=== PATIENT | male | born 1960 | race Caucasian/White ===

== ENCOUNTER → 2016-11-27 | Outpatient (CLI) | payer MEDICARE | LOC: RAD 11:15 | PROVIDERS: ATTEND Physician Assistant | DX: L03.116 Cellulitis of left lower limb (principal) | CPT/HCPCS: 82565; 73720; A9576 ==

== ENCOUNTER 2016-12-05 12:31 | Inpatient (IN) | payer MEDICARE ==
--- NOTE | 2016-12-05 12:46 | ER Document Report ---
ED Medical Screen (RME) - General Stated Complaint: LEFT FOOT PAIN, SWELLING,DRAINAGE Notes: 56 yo male c/o left foot swelling, redness x several weeks. All toes amputated secondary to trauma and infection. Not diabetic. + hx/o cellulits and MRSA. Seen by emergency technician, Dr Kaur yesterday. Had recent MRI of foot, no osteomylitis. symptoms not improving with oral antibiotics. Recommended to come to ER by Dr Kaur for further evaluation. No fever. Pain 2/5 TRAVEL OUTSIDE OF THE [place] IN LAST 30 DAYS: No
[2016-12-05 14:40] LABS: ABSOLUTE BASOPHILS # (AUTO) 0.1 10^3/uL (0.0-0.2); ABSOLUTE EOSINOPHILS # (AUTO) 0.3 10^3/uL (0.0-0.6); ABSOLUTE LYMPHOCYTES (AUTO) 1.3 10^3/uL (0.5-4.7); ABSOLUTE MONOCYTES (AUTO) 1.2 10^3/uL (0.1-1.4); ABSOLUTE NEUT (AUTO) 10.6 10^3/uL (1.7-8.2); BASOPHILS % (AUTO) 0.6 % (0-2); EOSINOPHILS % (AUTO) 2.6 % (0-6); HEMATOCRIT 36.9 % (37.9-51.0); HEMOGLOBIN 11.7 g/dL (13.5-17.0); HGB HCT DIFFERENCE -1.8; LYMPHOCYTES % (AUTO) 9.3 % (13-45); MEAN CORPUSCULAR HEMOGLOBIN 28.9 pg (27.0-33.4); MEAN CORPUSCULAR HGB CONC 31.6 g/dL (32.0-36.0); MEAN CORPUSCULAR VOLUME 92 fl (80-97); MONOCYTES % (AUTO) 8.8 % (3-13); RED BLOOD COUNT 4.04 10^6/uL (4.35-5.55); RED CELL DISTRIBUTION WIDTH 14.6 % (11.5-14.0); SEGMENTED NEUTROPHILS % (AUTO) 78.7 % (42-78); WHITE BLOOD COUNT 13.5 10^3/uL (4.0-10.5)
[2016-12-05 14:56] LABS: ALANINE AMINOTRANSFERASE 55 U/L (21-72); ALBUMIN 3.9 g/dL (3.5-5.0); ALKALINE PHOSPHATASE 89 U/L (38-126); ANION GAP 14 (5-19); ASPARTATE AMINO TRANSFERASE 38 U/L (17-59); BILIRUBIN,TOTAL 0.2 mg/dL (0.2-1.3); BLOOD UREA NITROGEN 15 mg/dL (7-20); CARBON DIOXIDE 27 mmol/L (22-30); CHLORIDE 92 mmol/L (98-107); CREATININE RESULT 0.85 mg/dL (0.52-1.25); GLUCOSE 91 mg/dL (75-110); POTASSIUM 4.8 mmol/L (3.6-5.0); TOTAL PROTEIN 7.2 g/dL (6.3-8.2)
[2016-12-05] MEDS ORDERED: VANCOMYCIN HCL INJ 1000 MG VIAL IV ONE (15:00)
--- NOTE | 2016-12-05 15:00 | ER Document Report ---
ED General - General Chief Complaint: Foot Pain Stated Complaint: LEFT FOOT PAIN, SWELLING,DRAINAGE Time seen by provider: 14:58 Mode of Arrival: Ambulatory Information source: Patient Notes: This is a 56-year-old man with a history of hypertension, dyslipidemia, stomach ulcers, peripheral vascular disease with vascular neuropathy status post left metatarsal amputations. The patient is new to the area and had an MRI 2 weeks ago by Niki Rodriguez and Shauna Carroll. The patient reports that the MRI did not show osteopenia. He was seen by Dr. Kaur yesterday and referred to the emergency room. Patient has been experiencing increased discharge, changes in color that left foot stump. Medicines: Amitriptyline 50 mg daily Gabapentin 800 mg 4 times daily Lisinopril 20 mg daily Amlodipine 10 mg daily Simvastatin 80 mg daily Pantoprazole 40 mg daily Metoprolol 100 mg daily Aspirin Ventolin when necessary Plavix 75 mg daily Aren't and multivitamin Allergies: Lexiscan TRAVEL OUTSIDE OF THE [place] IN LAST 30 DAYS: No - HPI Onset: Last week Onset/Duration: Gradual Quality of pain: No pain Severity: None Pain Level: Denies Associated symptoms: Chills, Fever Exacerbated by: Denies Relieved by: Denies Similar symptoms previously: Yes Recently seen / treated by doctor: Yes - Related Data Allergies/Adverse Reactions: regadenoson [From [employer]] Allergy (Verified 12/05/16 12:47) Home Medications: Current Home Medications Albuterol Sulfate [Ventolin HFA MDI 18 GM] 2 puff IH Q4HP PRN 12/05/16 [History] Amitriptyline HCl [Elavil 50 mg Tablet] 50 mg PO DAILY 12/05/16 [History] Amlodipine Besylate [Norvasc 10 mg Tablet] 10 mg PO DAILY 12/05/16 [History] Aspirin [Aspirin EC] 81 mg PO DAILY 12/05/16 [History] Clopidogrel Bisulfate [Plavix 75 mg Tablet] 75 mg PO QHS 12/05/16 [History] Gabapentin [Neurontin 400 mg Capsule] 800 mg PO QID 12/05/16 [History] Lisinopril [Prinivil] 20 mg PO DAILY 12/05/16 [History] Metoprolol Succinate [Toprol XL 100 mg Tablet] 100 mg PO DAILY 12/05/16 [History ] Multivitamin [Daily Multiple Vitamin] 1 tab PO DAILY 12/05/16 [History] Pantoprazole Sodium [Protonix] 40 mg PO DAILY 12/05/16 [History] Simvastatin [Zocor 80 mg Tablet] 80 mg PO QHS 12/05/16 [History] Past Medical History - General Information source: Patient - Social History Smoking Status: Current Every Day Smoker Cigarette use (# per day): Yes - half-pack per day Chew tobacco use (# tins/day): No Frequency of alcohol use: None Drug Abuse: None Lives with: Alone Family History: Reviewed & Not Pertinent Patient has suicidal ideation: No Patient has homicidal ideation: No - Past Medical History Cardiac Medical History: Reports: None Pulmonary Medical History: Reports: None Neurological Medical History: Reports: Other - Peripheral neuropathy Endocrine Medical History: Reports: None Renal/ Medical History: Denies: Hx Peritoneal Dialysis Malignancy Medical History: Reports None GI Medical History: Reports: None Musculoskeltal Medical History: Reports None Skin Medical History: Reports None Psychiatric Medical History: Reports: None Traumatic Medical History: Reports: None Infectious Medical History: Reports: None Past Surgical History: Reports: Other - Transmetatarsal amputation left foot - Immunizations Hx Diphtheria, Pertussis, Tetanus Vaccination: Yes Review of Systems - Review of Systems Constitutional: Chills, Fever EENT: No symptoms reported Cardiovascular: No symptoms reported Respiratory: No symptoms reported Gastrointestinal: No symptoms reported Genitourinary: No symptoms reported Male Genitourinary: No symptoms reported Musculoskeletal: See HPI Skin: No symptoms reported Hematologic/Lymphatic: No symptoms reported Neurological/Psychological: No symptoms reported Physical Exam - Vital signs Vitals: Temp Pulse Resp BP Pulse Ox 97.5 F 103 H 20 182/101 H 97 12/05/16 12:39 12/05/16 12:39 12/05/16 12:39 12/05/16 12:39 12/05/16 12:39 Notes: Physical exam: GENERAL: 56-year-old man, alert and oriented 3, no acute distress HEAD: Atraumatic, normocephalic. EYES: Pupils equal round and reactive to light, extraocular movements intact, sclera anicteric, conjunctiva are normal. ENT: TMs normal, nares patent, oropharynx clear without exudates. Moist mucous membranes. NECK: Normal range of motion, supple without lymphadenopathy or JVD. LUNGS: Breath sounds clear to auscultation bilaterally and equal. No wheezes rales or rhonchi. HEART: Regular rate and rhythm without murmurs, rubs or gallops. ABDOMEN: Soft, nontender, normoactive bowel sounds. No guarding, no rebound. No masses appreciated. EXTREMITIES: Left foot status post old metatarsals fracture. The stump does have some erythema as well as pallor and ecchymoses. There is is an opening on the plantar surface of the foot with discharge. There is no anaerobic smell at this time. NEUROLOGICAL: Cranial nerves II through XII grossly intact. Normal speech, normal gait. PSYCH: Normal mood, normal affect. SKIN: Warm, Dry, normal turgor, no rashes or lesions noted. Course - Re-evaluation Re-evalutation: 12/05/16 15:33 Note: The patient had an MRI 2 weeks ago which showed cellulitis without obvious osteomyelitis. Despite outpatient antibiotics, the wound has gotten worse. Clinically, this does look like a potentially limb threatening infection. The patient is started on broad-spectrum antibiotics and will be admitted to the hospital. - Vital Signs Vital signs: Temp Pulse Resp BP Pulse Ox 97.5 F 77 18 126/60 H 95 12/06/16 00:21 12/06/16 00:21 12/06/16 00:21 12/06/16 00:21 12/06/16 00:21 - Laboratory Result Diagrams: 12/05/16 13:45 12/05/16 13:45 Laboratory results interpreted by me: 12/05/16 12/05/16 13:45 13:45 WBC 13.5 H RBC 4.04 L Hgb 11.7 L Hct 36.9 L MCHC 31.6 L RDW 14.6 H Plt Count 484 H Seg Neutrophils % 78.7 H Lymphocytes % 9.3 L Absolute Neutrophils 10.6 H Sodium 133.0 L Chloride 92 L - Diagnostic Test Radiology reviewed: Image reviewed, Reports reviewed - Diffuse soft tissue swelling with gas in the tissues. Critical Care Note - Critical Care Note Total time excluding time spent on procedures (mins): 60 Discharge - Discharge Clinical Impression: cellulitis of the left foot Condition: Serious Disposition: ADMITTED INPATIENT Admitting Provider: Hospitalist - Dr. Correa stated Unit Admitted: Medical Floor
[2016-12-05] MEDS ORDERED: ONDANSETRON HCL INJ/PF 4 MG/2 ML SDV IV PRN ×2 (15:01→16:18)
[2016-12-05] MEDS ORDERED: PIPERACILLIN/TAZOBACTAM 3.375 GM VIAL IV ONE (15:01)
[2016-12-05] MEDS ORDERED: MORPHINE SULFATE 10 MG/ML INJ IV PRN ×2 (15:01→16:31)
[2016-12-05] MEDS ORDERED: ACETAMINOPHEN 325 MG TABLET PO PRN (16:18)
[2016-12-05] MEDS ORDERED: ALBUTEROL SULFATE 0.083% NEB 2.5 MG/3 ML AMPUL NEB PRN (16:18)
[2016-12-05] MEDS ORDERED: VANCOMYCIN HCL INJ 1000 MG VIAL ONE (16:20)
[2016-12-05] MEDS ORDERED: ALBUTEROL SULFATE HFA (90 MCG/PUFF) 8 GM MDI (1 MDI/ER DISP) IH PRN (16:24)
[2016-12-05] MEDS ORDERED: VANCOMYCIN HCL 0 MG in DEXTROSE 5%-WATER 250 ML IV NR (16:30)
[2016-12-05] MEDS ORDERED: ALBUTEROL SULFATE HFA (90 MCG/PUFF) 200 PUFF/8.5 GM MDI IH PRN (16:37)
--- NOTE | 2016-12-05 16:56 | PDOC H&P ---
History of Present Illness Admission Date/PCP: 12/05/16 16:05 Patient complains of: Infected left foot History of Present Illness: TOAN JIMENEZ is a 56 year old male with a history of severe peripheral vascular disease and has had a left transmetatarsal and dictation the left foot in the past who presents with an infected left stump. The patient reports that [place] He was seen in urgent care on the of this month and was sent for an MRI which was negative for any type of ostomy mellitus. He was started empirically on Keflex. The patient went to see the hired worker yesterday and was told to come to the hospital for IV antibiotics as he was feeling to get better. Patient reports that he's had some purulent drainage from the plantar aspect over the third or fourth metatarsal head. Patient has some surrounding erythema on the plantar aspect of his foot. He denies any worsening pain that his usual neuropathic pain that he has baseline. The patient does not have diabetes and just has severe peripheral last her disease. He has had angioplasty done to the arteries in his left leg last time being about 7 years ago. He denies having any fevers or chills or night sweats. Past Medical History Cardiac Medical History: Reports: Hyperlipidema, Hypertension, Peripheral Vascular Disease Pulmonary Medical History: Reports: Chronic Obstructive Pulmonary Disease (COPD) , Sleep Apnea EENT Medical History: Reports: None Neurological Medical History: Reports: Other - Peripheral neuropathy Renal/ Medical History: Reports: None Malignancy Medical History: Reports: None GI Medical History: Reports: Gastroesophageal Reflux Disease Musculoskeltal Medical History: Reports: None Psychiatric Medical History: Reports: Tobacco Dependency Hematology: Reports: None Infectious Medical History: Reports: Methicillin-Resistant Staph Aureus Past Surgical History Past Surgical History: Reports: Orthopedic Surgery - Status post left transmetatarsal amputation Social History Information Source: Patient Lives with: Family Smoking Status: Current Every Day Smoker Cigarettes Packs Per Day: 1.5 Frequency of Alcohol Use: Social Hx Recreational Drug Use: No Drugs: None Hx Prescription Drug Abuse: No - Advance Directive Resuscitation Status: Full Code Family History Family History: CAD Family History: Father at age 59 from coronary artery disease. Mother at a 77 with dementia. Parental Family History Reviewed: Yes Children Family History Reviewed: No Sibling(s) Family History Reviewed.: No Medication/Allergy Home Medications: Albuterol Sulfate [Ventolin HFA MDI 18 GM] 2 puff IH Q4HP PRN 12/05/16 Amitriptyline HCl [Elavil 50 mg Tablet] 50 mg PO DAILY 12/05/16 Amlodipine Besylate [Norvasc 10 mg Tablet] 10 mg PO DAILY 12/05/16 Aspirin [Aspirin EC] 81 mg PO DAILY 12/05/16 Clopidogrel Bisulfate [Plavix 75 mg Tablet] 75 mg PO QHS 12/05/16 Gabapentin [Neurontin 400 mg Capsule] 800 mg PO QID 12/05/16 Lisinopril [Prinivil] 20 mg PO DAILY 12/05/16 Metoprolol Succinate [Toprol XL 100 mg Tablet] 100 mg PO DAILY 12/05/16 Multivitamin [Daily Multiple Vitamin] 1 tab PO DAILY 12/05/16 Pantoprazole Sodium [Protonix] 40 mg PO DAILY 12/05/16 Simvastatin [Zocor 80 mg Tablet] 80 mg PO QHS 12/05/16 Allergies/Adverse Reactions: regadenoson [From [employer]] Allergy (Verified 12/05/16 12:47) Review of Systems Constitutional: ABSENT: chills, fever(s), headache(s), weight gain, weight loss Eyes: ABSENT: visual disturbances Ears: ABSENT: hearing changes Cardiovascular: ABSENT: chest pain, dyspnea on exertion, edema, orthropnea, palpitations Respiratory: ABSENT: cough, hemoptysis Gastrointestinal: ABSENT: abdominal pain, constipation, diarrhea, hematemesis, hematochezia, nausea, vomiting Genitourinary: ABSENT: dysuria, hematuria Musculoskeletal: ABSENT: joint swelling Integumentary: PRESENT: other - Left transmetatarsal amputation site shows significant scanned with a shallow ulcer on the plantar aspect over the third and fourth metatarsal head area. There is a small amount of purulent drainage and erythema on the plantar aspect of the foot from the transmetatarsal area down to the heel. Nontender palpate Neurological: PRESENT: other - Neuropathic symptoms in bilateral legs.. ABSENT : abnormal gait, abnormal speech, confusion, dizziness, focal weakness, syncope Psychiatric: ABSENT: anxiety, depression Endocrine: ABSENT: cold intolerance, heat intolerance, polydipsia, polyuria Hematologic/Lymphatic: ABSENT: easy bleeding, easy bruising Physical Exam Vital Signs: Temp Pulse Resp BP Pulse Ox 97.5 F 103 H 20 182/101 H 97 12/05/16 12:39 12/05/16 12:39 12/05/16 12:39 12/05/16 12:39 12/05/16 12:39 General appearance: PRESENT: no acute distress, well-developed, well-nourished Head exam: PRESENT: atraumatic, normocephalic Eye exam: PRESENT: conjunctiva pink, EOMI, PERRLA. ABSENT: scleral icterus Ear exam: PRESENT: normal external ear exam Mouth exam: PRESENT: moist, tongue midline Neck exam: ABSENT: carotid bruit, JVD, lymphadenopathy, thyromegaly Respiratory exam: PRESENT: clear to auscultation law. ABSENT: rales, rhonchi, wheezes Cardiovascular exam: PRESENT: RRR. ABSENT: diastolic murmur, rubs, systolic murmur Pulses: PRESENT: other - Patient's feet are warm however there is no appreciable dorsalis pedis pulse. Vascular exam: PRESENT: normal capillary refill - Normal refill of the hands. GI/Abdominal exam: PRESENT: normal bowel sounds, soft. ABSENT: distended, guarding, mass, organolmegaly, rebound, tenderness Rectal exam: PRESENT: deferred Extremities exam: PRESENT: other - Patient has a left transmetatarsal amputation previously with drainage from the plantar aspect over the third and fourth metatarsal head area. ABSENT: calf tenderness, clubbing, pedal edema Neurological exam: PRESENT: alert, awake, oriented to person, oriented to place , oriented to time, oriented to situation, CN II-XII grossly intact. ABSENT: motor sensory deficit Psychiatric exam: PRESENT: appropriate affect, normal mood Skin exam: PRESENT: other - Patient has erythema on the plantar aspect of the left foot. He is status post transmetatarsal inpatient. There is a area approximately 2 cm above the third and fourth metatarsal head area that is shallow with a small amount of purulent drainage. Results Impressions: Foot X-Ray 12/05/16 15:05 IMPRESSION: Diffuse soft tissue swelling with soft tissue gas over the left foot anteriorly and plantar along the 1st metatarsal stump Assessment & Plan - Diagnosis (1) Cellulitis and abscess of foot Is this a current diagnosis for this admission?: YesPlan: The patient was on Keflex prior to coming to the emergency room. He does relate that he has a history of MRSA infections in the past. Because of this we will place him on vancomycin and Zosyn. Blood and wound cultures will be obtained. The patient had MRI of his foot done on November 27 showed no evidence for osteomyelitis. Plain films do show some gas and soft tissue but no obvious bony involvement. Given his history of severe peripheral vascular disease we will obtain arterial Doppler studies of the left leg. (2) Peripheral vascular disease Is this a current diagnosis for this admission?: YesPlan: We'll obtain arterial Doppler studies of the left leg to evaluate for decreased blood flow. (3) Hyperlipidemia Is this a current diagnosis for this admission?: YesPlan: Continue with Zocor. (4) Peripheral neuropathy Is this a current diagnosis for this admission?: YesPlan: We'll continue with the gabapentin. The patient does not have any history of diabetes. (5) Gastroesophageal reflux disease Is this a current diagnosis for this admission?: YesPlan: Continue with Protonix. He currently is asymptomatic (6) Hypertension Is this a current diagnosis for this admission?: YesPlan: We'll continue with the lisinopril and Norvasc as well as metoprolol. (7) Obstructive sleep apnea Is this a current diagnosis for this admission?: YesPlan: Patient normally uses a CPAP at home and we will continue with that. He does not know his settings. - Time Time Spent: 50 to 70 Minutes - Inpatient Certification Medical Necessity: Need for IV Antibiotics - Plan Summary Plan Summary: I anticipate this will require greater than a 2 midnight stay because the need for IV antibiotics for treatment of cellulitis that failed outpatient therapy.
[2016-12-05] MEDS: GABAPENTIN 400 MG CAPSULE PO SCH ×2 (17:11→23:16)
[2016-12-05] MEDS ORDERED: AMLODIPINE BESYLATE 10 MG TABLET PO ONE (17:30)
[2016-12-05] MEDS ORDERED: NICOTINE 14 MG/24 HR PATCH.TD24 TD ONE (17:30)
[2016-12-05] MEDS ORDERED: ASPIRIN 81 MG TABLET, ENT COATED PO ONE (17:30)
[2016-12-05] MEDS ORDERED: METOPROLOL SUCCINATE 50 MG TAB.SR.24H PO ONE (17:30)
[2016-12-05] MEDS ORDERED: ENOXAPARIN SODIUM INJ 40 MG/0.4 ML DISP.SYRIN SUBCUT ONE (17:30)
[2016-12-05] MEDS ORDERED: LISINOPRIL 10 MG TABLET PO ONE (17:30)
[2016-12-05] MEDS ORDERED: AMITRIPTYLINE HCL 50 MG TABLET PO ONE (17:30)
[2016-12-05] MEDS ORDERED: LANSOPRAZOLE 30 MG TAB.RAP.DR PO ONE (17:30)
[2016-12-05] MEDS: SIMVASTATIN 40 MG TABLET PO SCH (21:05)
[2016-12-05] MEDS: CLOPIDOGREL BISULFATE 75 MG TABLET PO SCH (21:05)
[2016-12-05] MEDS: OXYCODONE-ACETAMINOPHEN 5-325 MG TABLET PO PRN (21:06)
[2016-12-05] MEDS ORDERED: (PENDING PHARMACY ID) (Simvastatin [Zocor 80 Mg Tablet] 80 MG) PO SCH (22:00)
[2016-12-06] MEDS: PIPERACILLIN SODIUM/TAZOBACTAM 3.375 GM in NORMAL SALINE 100 ML IV SCH ×5 (01:44→20:21)
[2016-12-06] MEDS ORDERED: VANCOMYCIN HCL INJ 500 MG VIAL ONE (03:02)
[2016-12-06] MEDS ORDERED: VANCOMYCIN HCL INJ 1000 MG VIAL ONE (03:02)
[2016-12-06] MEDS: VANCOMYCIN HCL 1,250 MG in DEXTROSE 5%-WATER 250 ML IV SCH ×3 (03:28→17:02)
[2016-12-06] MEDS: OXYCODONE-ACETAMINOPHEN 5-325 MG TABLET PO PRN ×3 (04:13→17:02)
[2016-12-06] MEDS: GABAPENTIN 400 MG CAPSULE PO SCH ×3 (05:17→19:39)
[2016-12-06 06:51] LABS: HEMATOCRIT 33.2 % (37.9-51.0); HEMOGLOBIN 10.6 g/dL (13.5-17.0); HGB HCT DIFFERENCE -1.4; MEAN CORPUSCULAR HEMOGLOBIN 29.5 pg (27.0-33.4); MEAN CORPUSCULAR HGB CONC 32.1 g/dL (32.0-36.0); MEAN CORPUSCULAR VOLUME 92 fl (80-97); RED BLOOD COUNT 3.61 10^6/uL (4.35-5.55); RED CELL DISTRIBUTION WIDTH 14.3 % (11.5-14.0); WHITE BLOOD COUNT 9.8 10^3/uL (4.0-10.5)
[2016-12-06 07:08] LABS: ANION GAP 13 (5-19); BLOOD UREA NITROGEN 18 mg/dL (7-20); CARBON DIOXIDE 25 mmol/L (22-30); CHLORIDE 97 mmol/L (98-107); CREATININE RESULT 0.99 mg/dL (0.52-1.25); GLUCOSE 132 mg/dL (75-110); POTASSIUM 4.8 mmol/L (3.6-5.0); SODIUM 134.6 mmol/L (137-145)
[2016-12-06] MEDS: ENOXAPARIN SODIUM INJ 40 MG/0.4 ML DISP.SYRIN SUBCUT SCH (08:29)
--- NOTE | 2016-12-06 08:30 | XCELERA REPORT ---
[address] [address] Lower Extremity Arterial Evaluation Name: TOAN JIMENEZ Age: 56 yrs Gender: Male : 1960 Patient Status: Inpatient Patient Location: \S\[facility]\S\A Study Date: 12/05/2016 06:18 PM Procedure: A color flow and duplex scan of the lower extremity arteries was performed on the left with velocity and waveform anaylsis. Reason For Study: non healing left foot lesion Ordering Physician: ELIGIO BOURNE Performed By: Lashawn Irene Measurements and Calculations Right Left DOCUMENT COORDINATOR PSV 154.0 cm/sec Prox PFA PSV -118.8 cm/sec Prox SFA PSV 149.0 cm/sec Mid SFA PSV 112.5 cm/sec Dist SFA PSV -143.3 cm/sec Dist Pop A PSV 104.3 cm/sec Dist JYOTI PSV 59.1 cm/sec Dist CLOTHING WORKER PSV 79.9 cm/sec [place] Pedis PSV 58.1 cm/sec Right Side Arterial Evaluation Monophasic waveform in the Dorsalis Pedis spot check. Left Side Arterial Evaluation Abnormal velocity, monophasic waveform and reduced flow are present, from the Common Femoral artery to the infrageniculate vessels. The ankle-brachial index was not done. 50-99 % stenosis is noted at the inflow. Critical Findings Discussed with Dr Bosch at about 2100 hours. Interpretation Summary Severe hemodynamically significant lesions in the left lower extremity only, on duplex imaging, at rest. With findings right, Aorta iliac disease is suspected. : ELIGIO BOURNE > Barron Alvarado
[2016-12-06] MEDS: METOPROLOL SUCCINATE 50 MG TAB.SR.24H PO SCH (09:43)
[2016-12-06] MEDS: LANSOPRAZOLE 30 MG TAB.RAP.DR PO SCH (09:43)
[2016-12-06] MEDS: LISINOPRIL 10 MG TABLET PO SCH (09:43)
[2016-12-06] MEDS: AMITRIPTYLINE HCL 50 MG TABLET PO SCH (09:44)
[2016-12-06] MEDS: ASPIRIN 81 MG TABLET, ENT COATED PO SCH (09:44)
[2016-12-06] MEDS: AMLODIPINE BESYLATE 10 MG TABLET PO SCH (09:44)
[2016-12-06] MEDS: MULTIVITAMIN TABLET PO SCH (09:45)
[2016-12-06] MEDS: NICOTINE 14 MG/24 HR PATCH.TD24 TD SCH (09:46)
[2016-12-06] MEDS ORDERED: (PENDING PHARMACY ID) (Lisinopril [Prinivil] 20 MG) PO SCH (10:00)
--- NOTE | 2016-12-06 10:17 | PDOC PROGRESS REPORT ---
Subjective Progress Note for:: 12/06/16 Subjective:: Reports less pain in his leg today. Physical Exam Vital Signs: Temp Pulse Resp BP Pulse Ox 97.4 F 74 16 110/59 L 97 12/06/16 08:00 12/06/16 08:00 12/06/16 08:00 12/06/16 08:00 12/06/16 08:00 Intake & Output 12/05/16 12/06/16 12/07/16 06:59 06:59 06:59 Intake Total 675 Output Total 1 Balance 674 Weight 97 kg General appearance: PRESENT: no acute distress Eye exam: PRESENT: conjunctiva pink. ABSENT: scleral icterus Ear exam: PRESENT: normal external ear exam Mouth exam: PRESENT: moist, tongue midline Neck exam: PRESENT: full ROM. ABSENT: JVD Respiratory exam: PRESENT: clear to auscultation law. ABSENT: rales, rhonchi, wheezes Cardiovascular exam: PRESENT: RRR. ABSENT: diastolic murmur, rubs, systolic murmur GI/Abdominal exam: PRESENT: normal bowel sounds, soft. ABSENT: distended, guarding, mass, organolmegaly, rebound, tenderness Extremities exam: PRESENT: clubbing, full ROM, other - Left foot is in a dressing. ABSENT: calf tenderness, pedal edema Neurological exam: PRESENT: alert, awake, oriented to person, oriented to place , oriented to time, oriented to situation Psychiatric exam: PRESENT: appropriate affect Skin exam: PRESENT: other - Dressing in place on the left foot. Results Laboratory Results: 12/06/16 06:00 12/06/16 06:00 12/06/16 12/06/16 06:00 06:00 WBC 9.8 RBC 3.61 L Hgb 10.6 L Hct 33.2 L MCV 92 MCH 29.5 MCHC 32.1 RDW 14.3 H Plt Count 400 Sodium 134.6 L Potassium 4.8 Chloride 97 L Carbon Dioxide 25 Anion Gap 13 BUN 18 Creatinine 0.99 Est GFR ( Amer) > 60 Est GFR (Non-Af Amer) > 60 Glucose 132 H Calcium 10.0 Impressions: Foot X-Ray 12/05/16 15:05 IMPRESSION: Diffuse soft tissue swelling with soft tissue gas over the left foot anteriorly and plantar along the 1st metatarsal stump Assessment & Plan - Diagnosis (1) Cellulitis and abscess of foot Is this a current diagnosis for this admission?: YesPlan: The patient is on vancomycin and Zosyn. Patient reports that his leg already feels much better and is less erythematous. The patient had MRI of his foot done on November 27 showed no evidence for osteomyelitis. Arterial Doppler ultrasound shows him to have significant stenosis and inflow of the left leg. His leg is warm however. Clinically he is improving with antibiotics. If he does not need to improve we would transfer to a vascular surgery service however if he continues to improve we may just have him do this as an outpatient. Plain films do show some gas and soft tissue but no obvious bony involvement. (2) Peripheral vascular disease Is this a current diagnosis for this admission?: YesPlan: We'll obtain arterial Doppler studies of the left leg to evaluate for decreased blood flow. (3) Hyperlipidemia Is this a current diagnosis for this admission?: YesPlan: Continue with Zocor. (4) Peripheral neuropathy Is this a current diagnosis for this admission?: YesPlan: We'll continue with the gabapentin. The patient does not have any history of diabetes. (5) Gastroesophageal reflux disease Is this a current diagnosis for this admission?: YesPlan: Continue with Protonix. He currently is asymptomatic (6) Hypertension Is this a current diagnosis for this admission?: YesPlan: We'll continue with the lisinopril and Norvasc as well as metoprolol. (7) Obstructive sleep apnea Is this a current diagnosis for this admission?: YesPlan: Patient normally uses a CPAP at home and we will continue with that. He does not know his settings. - Time Time Spent with patient: 25-34 minutes - Inpatient Certification Medical Necessity: Need for IV Antibiotics - Plan Summary Plan Summary: As long as he clinically improves we'll continue the IV antibiotics here. If he fails to improve clinically would transfer to a facility with vascular surgery capabilities.
[2016-12-06] MEDS: CLOPIDOGREL BISULFATE 75 MG TABLET PO SCH (22:25)
[2016-12-06] MEDS: SIMVASTATIN 40 MG TABLET PO SCH (22:25)
[2016-12-07] MEDS: VANCOMYCIN HCL 1,250 MG in DEXTROSE 5%-WATER 250 ML IV SCH ×3 (01:53→21:18)
[2016-12-07] MEDS: GABAPENTIN 400 MG CAPSULE PO SCH ×5 (01:53→23:13)
[2016-12-07] MEDS: OXYCODONE-ACETAMINOPHEN 5-325 MG TABLET PO PRN ×4 (02:11→23:13)
[2016-12-07] MEDS: PIPERACILLIN SODIUM/TAZOBACTAM 3.375 GM in NORMAL SALINE 100 ML IV SCH ×4 (04:30→20:35)
[2016-12-07 07:09] LABS: ABSOLUTE BASOPHILS # (AUTO) 0.2 10^3/uL (0.0-0.2); ABSOLUTE EOSINOPHILS # (AUTO) 0.5 10^3/uL (0.0-0.6); ABSOLUTE MONOCYTES (AUTO) 0.8 10^3/uL (0.1-1.4); ABSOLUTE NEUT (AUTO) 7.5 10^3/uL (1.7-8.2); BASOPHILS % (AUTO) 2.1 % (0-2); EOSINOPHILS % (AUTO) 4.8 % (0-6); HEMATOCRIT 35.4 % (37.9-51.0); HEMOGLOBIN 11.5 g/dL (13.5-17.0); HGB HCT DIFFERENCE -0.9; LYMPHOCYTES % (AUTO) 9.9 % (13-45); MEAN CORPUSCULAR HEMOGLOBIN 29.9 pg (27.0-33.4); MEAN CORPUSCULAR HGB CONC 32.6 g/dL (32.0-36.0); MEAN CORPUSCULAR VOLUME 92 fl (80-97); MONOCYTES % (AUTO) 8.1 % (3-13); RED BLOOD COUNT 3.87 10^6/uL (4.35-5.55); RED CELL DISTRIBUTION WIDTH 14.3 % (11.5-14.0); SEGMENTED NEUTROPHILS % (AUTO) 75.1 % (42-78); WHITE BLOOD COUNT 9.9 10^3/uL (4.0-10.5)
[2016-12-07 07:30] LABS: ANION GAP 14 (5-19); BLOOD UREA NITROGEN 18 mg/dL (7-20); CALCIUM 10.1 mg/dL (8.4-10.2); CARBON DIOXIDE 28 mmol/L (22-30); CHLORIDE 96 mmol/L (98-107); CREATININE RESULT 1.04 mg/dL (0.52-1.25); GLUCOSE 101 mg/dL (75-110); SODIUM 137.7 mmol/L (137-145)
[2016-12-07] MEDS: ENOXAPARIN SODIUM INJ 40 MG/0.4 ML DISP.SYRIN SUBCUT SCH (08:46)
[2016-12-07] MEDS: METOPROLOL SUCCINATE 50 MG TAB.SR.24H PO SCH (10:31)
[2016-12-07] MEDS: ASPIRIN 81 MG TABLET, ENT COATED PO SCH (10:31)
[2016-12-07] MEDS: LISINOPRIL 10 MG TABLET PO SCH (10:31)
[2016-12-07] MEDS: AMITRIPTYLINE HCL 50 MG TABLET PO SCH (10:32)
[2016-12-07] MEDS: NICOTINE 14 MG/24 HR PATCH.TD24 TD SCH (10:32)
[2016-12-07] MEDS: LANSOPRAZOLE 30 MG TAB.RAP.DR PO SCH (10:32)
[2016-12-07] MEDS: MULTIVITAMIN TABLET PO SCH (10:32)
[2016-12-07] MEDS: AMLODIPINE BESYLATE 10 MG TABLET PO SCH (10:32)
[2016-12-07] MEDS: FERROUS SULFATE 325 MG TABLET PO SCH ×2 (10:33→17:05)
[2016-12-07 10:47] LABS: CREATININE RESULT 1.03 mg/dL (0.52-1.25)
--- NOTE | 2016-12-07 16:06 | PDOC PROGRESS REPORT ---
Subjective Progress Note for:: 12/07/16 Subjective:: Denies complaints Physical Exam Vital Signs: Temp Pulse Resp BP Pulse Ox 97.8 F 82 18 133/60 H 99 12/07/16 15:40 12/07/16 15:40 12/07/16 15:40 12/07/16 15:40 12/07/16 15:40 Intake & Output 12/06/16 12/07/16 12/08/16 06:59 06:59 06:59 Intake Total 675 2699 530 Output Total 1 2 Balance 674 2697 530 Weight 97 kg 97 kg General appearance: PRESENT: no acute distress Eye exam: PRESENT: conjunctiva pink. ABSENT: scleral icterus Ear exam: PRESENT: normal external ear exam Mouth exam: PRESENT: moist, tongue midline Neck exam: ABSENT: JVD Respiratory exam: PRESENT: clear to auscultation law. ABSENT: rales, rhonchi, wheezes Cardiovascular exam: PRESENT: RRR. ABSENT: diastolic murmur, rubs, systolic murmur GI/Abdominal exam: PRESENT: normal bowel sounds, soft. ABSENT: distended, guarding, mass, organolmegaly, rebound, tenderness Extremities exam: PRESENT: other - Status post left transmetatarsal dictation. ABSENT: calf tenderness, clubbing, pedal edema Neurological exam: PRESENT: alert, awake, oriented to person, oriented to place , oriented to time, oriented to situation Psychiatric exam: PRESENT: appropriate affect Focused psych exam: PRESENT: other - Less erythema on the left plantar area. Patient has an ulcer over the fourth metatarsal head metatarsal head Results Laboratory Results: 12/07/16 06:25 12/07/16 10:05 12/07/16 12/07/16 12/07/16 06:25 06:25 10:05 WBC 9.9 RBC 3.87 L Hgb 11.5 L Hct 35.4 L MCV 92 MCH 29.9 MCHC 32.6 RDW 14.3 H Plt Count 435 Seg Neutrophils % 75.1 Lymphocytes % 9.9 L Monocytes % 8.1 Eosinophils % 4.8 Basophils % 2.1 H Absolute Neutrophils 7.5 Absolute Lymphocytes 1.0 Absolute Monocytes 0.8 Absolute Eosinophils 0.5 Absolute Basophils 0.2 Sodium 137.7 Potassium 5.0 Chloride 96 L Carbon Dioxide 28 Anion Gap 14 BUN 18 Creatinine 1.04 1.03 Est GFR ( Amer) > 60 > 60 Est GFR (Non-Af Amer) > 60 > 60 Glucose 101 Calcium 10.1 Impressions: Foot X-Ray 12/05/16 15:05 IMPRESSION: Diffuse soft tissue swelling with soft tissue gas over the left foot anteriorly and plantar along the 1st metatarsal stump Assessment & Plan - Diagnosis (1) Cellulitis and abscess of foot Is this a current diagnosis for this admission?: YesPlan: The patient is on vancomycin and Zosyn. Patient reports that his leg already feels much better and is less erythematous. The patient had MRI of his foot done on November 27 showed no evidence for osteomyelitis. Arterial Doppler ultrasound shows him to have significant stenosis and inflow of the left leg. His leg is warm however. Clinically he is improving with antibiotics. If he does not need to improve we would transfer to a vascular surgery service however if he continues to improve we may just have him do this as an outpatient. Plain films do show some gas and soft tissue but no obvious bony involvement. (2) Peripheral vascular disease Is this a current diagnosis for this admission?: YesPlan: Patient has stenosis in the left side. He clinically is improving and follow up with vascular surgery as an outpatient if he continues to improve. (3) Hyperlipidemia Is this a current diagnosis for this admission?: YesPlan: Continue with Zocor. (4) Peripheral neuropathy Is this a current diagnosis for this admission?: YesPlan: We'll continue with the gabapentin. The patient does not have any history of diabetes. (5) Gastroesophageal reflux disease Is this a current diagnosis for this admission?: YesPlan: Continue with Protonix. He currently is asymptomatic (6) Hypertension Is this a current diagnosis for this admission?: YesPlan: We'll continue with the lisinopril and Norvasc as well as metoprolol. (7) Obstructive sleep apnea Is this a current diagnosis for this admission?: YesPlan: Patient normally uses a CPAP at home and we will continue with that. He does not know his settings. - Time Time Spent with patient: 25-34 minutes - Inpatient Certification Medical Necessity: Need for IV Antibiotics
[2016-12-07] MEDS: CLOPIDOGREL BISULFATE 75 MG TABLET PO SCH (21:18)
[2016-12-07] MEDS: SIMVASTATIN 40 MG TABLET PO SCH (21:18)
[2016-12-08] MEDS: PIPERACILLIN SODIUM/TAZOBACTAM 3.375 GM in NORMAL SALINE 100 ML IV SCH ×4 (03:22→20:48)
[2016-12-08] MEDS: GABAPENTIN 400 MG CAPSULE PO SCH ×4 (05:41→23:27)
[2016-12-08] MEDS: OXYCODONE-ACETAMINOPHEN 5-325 MG TABLET PO PRN ×3 (07:16→22:32)
[2016-12-08] MEDS: ENOXAPARIN SODIUM INJ 40 MG/0.4 ML DISP.SYRIN SUBCUT SCH (08:25)
[2016-12-08] MEDS: LISINOPRIL 10 MG TABLET PO SCH (09:38)
[2016-12-08] MEDS: MULTIVITAMIN TABLET PO SCH (09:38)
[2016-12-08] MEDS: FERROUS SULFATE 325 MG TABLET PO SCH ×2 (09:38→17:22)
[2016-12-08] MEDS: AMLODIPINE BESYLATE 10 MG TABLET PO SCH (09:39)
[2016-12-08] MEDS: LANSOPRAZOLE 30 MG TAB.RAP.DR PO SCH (09:39)
[2016-12-08] MEDS: ASPIRIN 81 MG TABLET, ENT COATED PO SCH (09:39)
[2016-12-08] MEDS: AMITRIPTYLINE HCL 50 MG TABLET PO SCH (09:39)
[2016-12-08] MEDS: NICOTINE 14 MG/24 HR PATCH.TD24 TD SCH (09:40)
[2016-12-08] MEDS: METOPROLOL SUCCINATE 50 MG TAB.SR.24H PO SCH (09:40)
[2016-12-08] MEDS: VANCOMYCIN HCL 1,250 MG in DEXTROSE 5%-WATER 250 ML IV SCH ×2 (09:49→22:33)
--- NOTE | 2016-12-08 10:31 | PDOC PROGRESS REPORT ---
Subjective Progress Note for:: 12/08/16 Subjective:: Denies any complaints today. Physical Exam Vital Signs: Temp Pulse Resp BP Pulse Ox 97.4 F 88 18 152/71 H 99 12/08/16 07:40 12/08/16 07:40 12/08/16 07:40 12/08/16 07:40 12/08/16 07:40 Intake & Output 12/07/16 12/08/16 12/09/16 06:59 06:59 06:59 Intake Total 2699 1855 Balance 2699 1855 Weight 97 kg 97 kg General appearance: PRESENT: no acute distress Eye exam: PRESENT: conjunctiva pink. ABSENT: scleral icterus Mouth exam: PRESENT: moist, tongue midline Neck exam: ABSENT: carotid bruit, JVD, lymphadenopathy, thyromegaly Respiratory exam: PRESENT: clear to auscultation law. ABSENT: rales, rhonchi, wheezes Cardiovascular exam: PRESENT: RRR. ABSENT: diastolic murmur, rubs, systolic murmur GI/Abdominal exam: PRESENT: normal bowel sounds, soft. ABSENT: distended, guarding, mass, organolmegaly, rebound, tenderness Extremities exam: PRESENT: other - Left transmetatarsal amputation with dressing in place. ABSENT: calf tenderness, clubbing, pedal edema Neurological exam: PRESENT: alert, awake, oriented to person, oriented to place , oriented to time, oriented to situation Psychiatric exam: PRESENT: appropriate affect Skin exam: PRESENT: other - Patient has a draining lesion on the plantar aspect over the metatarsal head area with a shallow ulcer Results Laboratory Results: 12/07/16 06:25 12/07/16 10:05 12/07/16 10:05 Creatinine 1.03 Est GFR ( Amer) > 60 Est GFR (Non-Af Amer) > 60 Impressions: Foot X-Ray 12/05/16 15:05 IMPRESSION: Diffuse soft tissue swelling with soft tissue gas over the left foot anteriorly and plantar along the 1st metatarsal stump Assessment & Plan - Diagnosis (1) Cellulitis and abscess of foot Is this a current diagnosis for this admission?: YesPlan: The patient is on vancomycin and Zosyn. The patient had MRI of his foot done on November 27 showed no evidence for osteomyelitis. Arterial Doppler ultrasound shows him to have significant stenosis of inflow of the left leg. His leg is warm however. Clinically he is improving with antibiotics. If he does not continue to improve we would transfer to a vascular surgery service however if he continues to improve we may just have him do this as an outpatient. Plain films do show some gas and soft tissue but no obvious bony involvement. (2) Peripheral vascular disease Is this a current diagnosis for this admission?: YesPlan: Patient has stenosis in the left side. He clinically is improving and follow up with vascular surgery as an outpatient if he continues to improve. (3) Hyperlipidemia Is this a current diagnosis for this admission?: YesPlan: Continue with Zocor. (4) Peripheral neuropathy Is this a current diagnosis for this admission?: YesPlan: We'll continue with the gabapentin. The patient does not have any history of diabetes. (5) Gastroesophageal reflux disease Is this a current diagnosis for this admission?: YesPlan: Continue with Protonix. He currently is asymptomatic (6) Hypertension Is this a current diagnosis for this admission?: YesPlan: We'll continue with the lisinopril and Norvasc as well as metoprolol. (7) Obstructive sleep apnea Is this a current diagnosis for this admission?: YesPlan: Patient normally uses a CPAP at home and we will continue with that. - Time Time Spent with patient: 25-34 minutes - Inpatient Certification Medical Necessity: Need for IV Antibiotics
[2016-12-08] MEDS: SIMVASTATIN 40 MG TABLET PO SCH (22:32)
[2016-12-08] MEDS: CLOPIDOGREL BISULFATE 75 MG TABLET PO SCH (22:33)
[2016-12-08 22:35] LABS: CREATININE RESULT 1.06 mg/dL (0.52-1.25)
[2016-12-09] MEDS: PIPERACILLIN SODIUM/TAZOBACTAM 3.375 GM in NORMAL SALINE 100 ML IV SCH ×4 (02:08→21:29)
[2016-12-09] MEDS: GABAPENTIN 400 MG CAPSULE PO SCH ×4 (05:53→21:39)
[2016-12-09] MEDS: OXYCODONE-ACETAMINOPHEN 5-325 MG TABLET PO PRN ×3 (05:58→21:39)
[2016-12-09] MEDS: ASPIRIN 81 MG TABLET, ENT COATED PO SCH (09:57)
[2016-12-09] MEDS: VANCOMYCIN HCL 1,000 MG in DEXTROSE 5%-WATER 250 ML IV SCH ×2 (09:57→21:29)
[2016-12-09] MEDS: AMITRIPTYLINE HCL 50 MG TABLET PO SCH (09:58)
[2016-12-09] MEDS: FERROUS SULFATE 325 MG TABLET PO SCH ×2 (09:58→17:36)
[2016-12-09] MEDS: MULTIVITAMIN TABLET PO SCH (09:58)
[2016-12-09] MEDS: AMLODIPINE BESYLATE 10 MG TABLET PO SCH (09:58)
[2016-12-09] MEDS: LISINOPRIL 10 MG TABLET PO SCH (09:58)
[2016-12-09] MEDS: LANSOPRAZOLE 30 MG TAB.RAP.DR PO SCH (09:59)
[2016-12-09] MEDS: NICOTINE 14 MG/24 HR PATCH.TD24 TD SCH (09:59)
[2016-12-09] MEDS: METOPROLOL SUCCINATE 50 MG TAB.SR.24H PO SCH (09:59)
--- NOTE | 2016-12-09 11:36 | PDOC PROGRESS REPORT ---
Subjective Progress Note for:: 12/09/16 Subjective:: Complains of some bleeding from his foot ulcer. Physical Exam Vital Signs: Temp Pulse Resp BP Pulse Ox 97.3 F 85 16 137/94 H 97 12/09/16 07:33 12/09/16 07:33 12/09/16 07:33 12/09/16 07:33 12/09/16 07:33 Intake & Output 12/08/16 12/09/16 12/10/16 06:59 06:59 06:59 Intake Total 1855 3313 Balance 1855 3313 Weight 97 kg 100.1 kg General appearance: PRESENT: no acute distress Eye exam: PRESENT: conjunctiva pink. ABSENT: scleral icterus Mouth exam: PRESENT: moist, tongue midline Neck exam: ABSENT: JVD Respiratory exam: PRESENT: clear to auscultation law. ABSENT: rales, rhonchi, wheezes Cardiovascular exam: PRESENT: RRR. ABSENT: diastolic murmur, rubs, systolic murmur GI/Abdominal exam: PRESENT: normal bowel sounds, soft. ABSENT: distended, guarding, mass, organolmegaly, rebound, tenderness Extremities exam: PRESENT: other - Status post left transmetatarsal amputation. ABSENT: calf tenderness, clubbing Neurological exam: PRESENT: alert, awake, oriented to person, oriented to place , oriented to time, oriented to situation Psychiatric exam: PRESENT: appropriate affect Skin exam: PRESENT: other - Ulcer on the plantar aspect of the left foot above the third metatarsal head. Results Laboratory Results: 12/07/16 06:25 12/08/16 21:44 12/08/16 21:44 Creatinine 1.06 Est GFR ( Amer) > 60 Est GFR (Non-Af Amer) > 60 Impressions: Foot X-Ray 12/05/16 15:05 IMPRESSION: Diffuse soft tissue swelling with soft tissue gas over the left foot anteriorly and plantar along the 1st metatarsal stump Assessment & Plan - Diagnosis (1) Cellulitis and abscess of foot Is this a current diagnosis for this admission?: YesPlan: The patient is on vancomycin and Zosyn. The patient had MRI of his foot done on November 27 showed no evidence for osteomyelitis. Arterial Doppler ultrasound shows him to have significant stenosis of inflow of the left leg. His leg is warm however. Clinically he is improving with antibiotics. We'll plan on discharging home tomorrow on Bactrim and have him follow up with vascular surgery as an outpatient. (2) Peripheral vascular disease Is this a current diagnosis for this admission?: YesPlan: Patient has stenosis in the left side. He clinically is improving and follow up with vascular surgery as an outpatient if he continues to improve. (3) Hyperlipidemia Is this a current diagnosis for this admission?: YesPlan: Continue with Zocor. (4) Peripheral neuropathy Is this a current diagnosis for this admission?: YesPlan: We'll continue with the gabapentin. The patient does not have any history of diabetes. (5) Gastroesophageal reflux disease Is this a current diagnosis for this admission?: YesPlan: Continue with Protonix. He currently is asymptomatic (6) Hypertension Is this a current diagnosis for this admission?: YesPlan: We'll continue with the lisinopril and Norvasc as well as metoprolol. (7) Obstructive sleep apnea Is this a current diagnosis for this admission?: YesPlan: Patient normally uses a CPAP at home and we will continue with that. - Time Time Spent with patient: 15-24 minutes - Inpatient Certification Medical Necessity: Need for IV Antibiotics - Plan Summary Plan Summary: We'll plan on discharge home in the morning if he continues to improve.
[2016-12-09] MEDS: CLOPIDOGREL BISULFATE 75 MG TABLET PO SCH (21:30)
[2016-12-09] MEDS: SIMVASTATIN 40 MG TABLET PO SCH (21:30)
[2016-12-10] MEDS: PIPERACILLIN SODIUM/TAZOBACTAM 3.375 GM in NORMAL SALINE 100 ML IV SCH ×2 (03:32→08:42)
[2016-12-10] MEDS: GABAPENTIN 400 MG CAPSULE PO SCH (06:38)
[2016-12-10] MEDS: OXYCODONE-ACETAMINOPHEN 5-325 MG TABLET PO PRN (06:39)
[2016-12-10] MEDS: ASPIRIN 81 MG TABLET, ENT COATED PO SCH (09:33)
[2016-12-10] MEDS: LISINOPRIL 10 MG TABLET PO SCH (09:33)
[2016-12-10] MEDS: LANSOPRAZOLE 30 MG TAB.RAP.DR PO SCH (09:33)
[2016-12-10] MEDS: VANCOMYCIN HCL 1,000 MG in DEXTROSE 5%-WATER 250 ML IV SCH (09:34)
[2016-12-10] MEDS: METOPROLOL SUCCINATE 50 MG TAB.SR.24H PO SCH (09:34)
[2016-12-10] MEDS: FERROUS SULFATE 325 MG TABLET PO SCH (09:34)
[2016-12-10] MEDS: MULTIVITAMIN TABLET PO SCH (09:34)
[2016-12-10] MEDS: AMLODIPINE BESYLATE 10 MG TABLET PO SCH (09:34)
[2016-12-10] MEDS: AMITRIPTYLINE HCL 50 MG TABLET PO SCH (09:34)
[2016-12-10] MEDS: NICOTINE 14 MG/24 HR PATCH.TD24 TD SCH (09:35)
[2016-12-10 11:39] VITALS: BP 132/60
--- NOTE | 2016-12-10 13:07 | PDOC DISCHARGE SUMMARY ---
General - Admit/Disc Date/PCP Admission Date/Primary Care Provider: 12/05/16 16:18 Discharge Date: 12/10/16 - Discharge Diagnosis (1) Cellulitis and abscess of foot Is this a current diagnosis for this admission?: YesSummary: Treated initially with vancomycin and Zosyn. Cultures were negative and he was started on Bactrim DS 2 tablets twice a day for a total of 14 days after discharge. 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 (2) Peripheral vascular disease Is this a current diagnosis for this admission?: YesSummary: The patient had a Doppler ultrasound shows minimal flow in the left leg. Patient is being referred to [facility] vascular surgery. (3) Hyperlipidemia Is this a current diagnosis for this admission?: Yes (4) Peripheral neuropathy Is this a current diagnosis for this admission?: Yes (5) Gastroesophageal reflux disease Is this a current diagnosis for this admission?: Yes (6) Hypertension Is this a current diagnosis for this admission?: Yes (7) Obstructive sleep apnea Is this a current diagnosis for this admission?: Yes - Additional Information Resuscitation Status: Full Code Discharge Diet: Cardiac Discharge Activity: Activity As Tolerated Home Medications: Albuterol Sulfate [Ventolin HFA MDI 18 GM] 2 puff IH Q4HP PRN 12/05/16 Amitriptyline HCl [Elavil 50 mg Tablet] 50 mg PO DAILY 12/05/16 Amlodipine Besylate [Norvasc 10 mg Tablet] 10 mg PO DAILY 12/05/16 Aspirin [Aspirin EC] 81 mg PO DAILY 12/05/16 Clopidogrel Bisulfate [Plavix 75 mg Tablet] 75 mg PO QHS 12/05/16 Gabapentin [Neurontin 400 mg Capsule] 800 mg PO QID 12/05/16 Lisinopril [Prinivil] 20 mg PO DAILY 12/05/16 Metoprolol Succinate [Toprol XL 100 mg Tablet] 100 mg PO DAILY 12/05/16 Multivitamin [Daily Multiple Vitamin] 1 tab PO DAILY 12/05/16 Pantoprazole Sodium [Protonix] 40 mg PO DAILY 12/05/16 Simvastatin [Zocor 80 mg Tablet] 80 mg PO QHS 12/05/16 Ferrous Sulfate [Iron] 325 mg PO BID 12/06/16 Nicotine [Nicoderm 14 mg/24 Hr Transdermal Patch] 1 each TD DAILY patch.td24 Oxycodone HCl/Acetaminophen [Percocet 5-325 mg Tablet] 1 tab PO Q6HP PRN #20 tablet 12/10/16 Sulfamethoxazole/Trimethoprim [Bactrim Ds Tablet] 2 each PO BID #56 tablet 12/10 History of Present Illness History of Present Illness: TOAN JIMENEZ is a 56 year old male with a history of severe peripheral vascular disease and has had a left transmetatarsal and dictation the left foot in the past who presents with an infected left stump. The patient reports that [place] He was seen in urgent care on the of this month and was sent for an MRI which was negative for any type of ostomy mellitus. He was started empirically on Keflex. The patient went to see the junior automation engineer yesterday and was told to come to the hospital for IV antibiotics as he was feeling to get better. Patient reports that he's had some purulent drainage from the plantar aspect over the third or fourth metatarsal head. Patient has some surrounding erythema on the plantar aspect of his foot. He denies any worsening pain that his usual neuropathic pain that he has baseline. The patient does not have diabetes and just has severe peripheral last her disease. He has had angioplasty done to the arteries in his left leg last time being about 7 years ago. He denies having any fevers or chills or night sweats. Hospital Course Hospital Course: 56 year old gentleman with a history of severe peripheral vascular disease and tobacco abuse who presented with a swollen erythematous left foot. The patient has a history of having a transmetatarsal indentation the past. The patient had some purulent drainage from the plantar aspect of the third metatarsal head. The patient had cultures drawn which were negative. The patient however does have a history of having MRSA in the past. He was put on vancomycin and Zosyn and quickly had improvement in his cellulitis. The patient was started on Bactrim DS 2 tabs twice a day 14 days after discharge. We'll have the patient follow-up with him the wound clinic or podiatry which ever he chooses. The patient did have vascular studies which shows him to have decreased blood flow in the left leg. Patient is referred to [facility] asked her surgery service for consideration of revascularization of his left leg. The patient's other medical problems all were stable during this hospitalization. The patient had MRI prior to this admission which was negative for osteomyelitis. Physical Exam Vital Signs: Temp Pulse Resp BP Pulse Ox 97.8 F 83 18 132/60 H 97 12/10/16 11:36 12/10/16 11:36 12/10/16 11:36 12/10/16 11:36 12/10/16 11:36 Intake & Output 12/09/16 12/10/16 12/11/16 06:59 06:59 06:59 Intake Total 3313 2645 Balance 3313 2645 Weight 100.1 kg 100.1 kg General appearance: PRESENT: no acute distress Eye exam: PRESENT: conjunctiva pink. ABSENT: scleral icterus Mouth exam: PRESENT: moist, tongue midline Neck exam: ABSENT: JVD Respiratory exam: PRESENT: clear to auscultation law. ABSENT: rales, rhonchi, wheezes Cardiovascular exam: PRESENT: RRR. ABSENT: diastolic murmur, rubs, systolic murmur GI/Abdominal exam: PRESENT: normal bowel sounds, soft. ABSENT: distended, guarding, mass, organolmegaly, rebound, tenderness Extremities exam: PRESENT: other - Left foot has a transmetatarsal amputation. The plantar aspect there is a shallow ulcer over the third metatarsal head. There is no erythema and no purulent drainage.. ABSENT: calf tenderness, clubbing, pedal edema Neurological exam: PRESENT: alert, awake, oriented to person, oriented to place , oriented to time, oriented to situation Psychiatric exam: PRESENT: appropriate affect Skin exam: PRESENT: other - Left foot shows ulcer over the third metatarsal head on the plantar aspect. Results Laboratory Results: 12/07/16 06:25 12/08/16 21:44 Impressions: Foot X-Ray 12/05/16 15:05 IMPRESSION: Diffuse soft tissue swelling with soft tissue gas over the left foot anteriorly and plantar along the 1st metatarsal stump Qualifiers [facility] BEING DISCHARGED WITH ANY OF THE FOLLOWING DIAGNOSIS?: No Plan Discharge Plan: Patient is discharged home in stable condition. Time Spent: Greater than 30 Minutes
== END 2016-12-10 12:27 | disposition home or self-care (01) | DRG 565 ==
LOC: ER 12:31 → EH 16:05 → UNDOADMIN 16:05 → EH 16:18 → 4S 20:45
PROVIDERS: ADMIT Internal Medicine; ATTEND Internal Medicine
PROC: 3E0F73Z Introduction of Anti-inflammatory into Respiratory Tract, Via Natural or Artificial Opening (ICD-10-PCS; principal; 2016-12-05)
PROC: 5A09457 Assistance with Respiratory Ventilation, 24-96 Consecutive Hours, Continuous Positive Airway Pressure (ICD-10-PCS; 2016-12-05)
DX: T87.43 Infection of amputation stump, right lower extremity (principal); L03.115 Cellulitis of right lower limb; I73.9 Peripheral vascular disease, unspecified; G62.9 Polyneuropathy, unspecified; K21.9 Gastro-esophageal reflux disease without esophagitis; I10 Essential (primary) hypertension; G47.33 Obstructive sleep apnea (adult) (pediatric); E78.5 Hyperlipidemia, unspecified; J44.9 Chronic obstructive pulmonary disease, unspecified; F17.210 Nicotine dependence, cigarettes, uncomplicated; Z79.82 Long term (current) use of aspirin; Z79.899 Other long term (current) drug therapy; Z88.8 Allergy status to other drugs, medicaments and biological substances; Z86.14 Personal history of Methicillin resistant Staphylococcus aureus infection; Z82.49 Family history of ischemic heart disease and other diseases of the circulatory system
CPT/HCPCS: 36415; 80048; 80053; 80202; 82565; 83036; 85025; 85027; 87040; 93926; 94660; 96365; 96375; 99291; J1650; J2270; J2405; J2543; J3370; J3490; J7060